=== PATIENT | male | born 1975 | race Caucasian/White ===

== ENCOUNTER 2017-07-27 11:13 | Emergency (ER) | payer OTHER ==
[~2017-07-27] VITALS: Ht 182.9 cm; Wt 98.7 kg
[~2017-07-27 11:13] MED LIST: BACTRIM,SEPT1 TABLET PO; PERCOCET 5/31 TABLET PO
[2017-07-27 13:35] LABS: HEMATOCRIT 43.4 % (38.0-50.0); HEMOGLOBIN 15.1 G/DL (12.5-16.6); MCH 32.7 PG (29.0-34.0); MCHC 34.8 G/DL (30.0-36.0); MCV 93.9 FL (86-99); PLATELET COUNT 245 K/uL (156-360); RBC DIS.WIDTH-CV 12.5 % (11.8-14.6); RED BLOOD COUNT 4.62 M/uL (4.00-5.50); WHITE BLOOD COUNT 5.7 K/uL (4.1-10.2)
[2017-07-27 13:43] LABS: CHLORIDE 105 mEq/L (99-109); SODIUM 141 mEq/L (136-147)
[2017-07-27 13:45] LABS: GLUCOSE 104 mg/dL (70-99)
[2017-07-27 13:49] LABS: GFR ESTIMATE (CALCULATED) > 59 mL/min/ (58.99-99999)
[2017-07-27 13:50] LABS: UREA NITROGEN (BUN) 12 mg/dL (9-23)
[2017-07-27] MEDS ORDERED: PERCOCET 5/31 TABLET PO (16:07)
[2017-07-27] MEDS ORDERED: BACTRIM,SEPT1 TABLET PO (16:12)
[2017-07-27 16:22] VITALS: BP 148/93
== END 2017-07-27 16:23 | disposition home or self-care (01) ==
LOC: EME 11:13
PROVIDERS: Physician Assistant Medical
DX: R22.2 Localized swelling, mass and lump, trunk (principal); F17.200 Nicotine dependence, unspecified, uncomplicated
CPT/HCPCS: 76882; 80048; 81003; 85027; 99281; 99284